=== PATIENT | male | born 1940 | race Caucasian/White ===

== ENCOUNTER → 2017-01-03 | Outpatient (CLI) | payer MEDICARE, OTHER ==
--- NOTE | 2017-01-03 09:11 | DI ---
Indication: ITS.REASON: E04.1 DYSPHAGIA US THYROID: Comparison: None Technique: Real-time and color flow imaging provided Findings: Patient demonstrates the right lobe measuring 1.8 x 1.2 x 3.9 cm. Patient shows a mass in the central portion of the right lobe measuring 2.7 x 1.9 x 1.7 cm. This does contain blood flow. In the isthmus region patient should two measured masses largest measuring 2.2 x 1.8 x 2.1 cm which is also a hypoechoic but not cystic mass that did contain blood flow. A smaller lesion is seen also in the isthmus measuring 1.2 x 1.1 x 0.8 cm. Left lobe is homogeneous in texture and normal in size measuring 2.8 x 1.6 x 4.3 cm. Impression: 1. Hypoechoic masses in both the right lobe as well as the isthmus of the gland. 2. Ultrasonographic guided biopsy may be worthwhile for further workup, particularly on the right side where the borders are somewhat irregular. .
== END ==
LOC: IMA 07:36
PROVIDERS: ATTEND Otolaryngology
DX: E04.1 Nontoxic single thyroid nodule (principal); R13.10 Dysphagia, unspecified